=== PATIENT | female | born 1975 | race Caucasian/White ===

== ENCOUNTER 2016-10-18 05:45 | Inpatient (IN) | payer OTHER ==
[2016-10-17 10:20] VITALS: BMI 34.0
[~2016-10-18] VITALS: Ht 160 cm; Wt 84.9 kg
[2016-10-18] VITALS (24 sets, daily range): BP systolic 109–146; BP diastolic 57–86; PULSE 70–100; RESP 14–20; Ht 160 cm; Wt 84.9 kg
[2016-10-18] MEDS ORDERED: LACTATED RINGER'S 1,000 ML IV* SCH (06:00)
[2016-10-18] MEDS ORDERED: CEFAZOLIN 2 GM/50 ML (PMX) 50 ML IVPB SCH (06:00)
[2016-10-18] MEDS ORDERED: HYDR-902 PO (06:24)
[2016-10-18] MEDS ORDERED: SURGIFOAM POWDER 1 GM KIT ONE ×2 (06:47→10:40)
[2016-10-18] MEDS ORDERED: HEPARIN 1000 UNITS/ML 10 ML INJ ONE (06:47)
[2016-10-18] MEDS ORDERED: BUPIVACAINE 0.25%/EPI (SDV) 30 ML INJ ONE (06:47)
[2016-10-18] MEDS ORDERED: GELATIN SIZE 100 SPONGE ONE (06:47)
[2016-10-18] MEDS ORDERED: POLYMYXIN/BACITRACIN 1L IRRIG ONE (06:48)
[2016-10-18] MEDS ORDERED: THROMBIN 5000 UNIT VIAL ONE ×3 (06:48→10:40)
[2016-10-18] MEDS ORDERED: MIDAZOLAM 1 MG/ML 2 ML INJ ONE (06:49)
[2016-10-18] MEDS ORDERED: PROPOFOL 20 ML ONE ×3 (06:49→10:52)
[2016-10-18] MEDS ORDERED: ROCURONIUM 50 MG INJ ONE (06:49)
[2016-10-18] MEDS ORDERED: SUCCINYLCHOLINE CHLORIDE 100 MG/5 ML SYG IV ONE (06:49)
[2016-10-18] MEDS ORDERED: CEFAZOLIN 1 GM INJ ONE ×3 (06:49→10:52)
--- NOTE | 2016-10-18 07:00 | HPN ---
Date/Time of Note Date/Time of Note DATE: 10/18/16 TIME: 06:59 Interval H&P Admission Note Pt. seen H&P reviewed: No system changes ADALID MARTINES PA-C Oct 18, 2016 07:00
[2016-10-18] MEDS ORDERED: PHENYLephrine (100 MCG/ML) 5ML SYG ONE ×3 (07:16→09:07)
[2016-10-18] MEDS ORDERED: NALOXONE (0.4 MG/ML) INJ IV PRN (07:30)
[2016-10-18] MEDS ORDERED: ONDANSETRON 4 MG INJ IV PRN ×2 (07:30→09:30)
[2016-10-18] MEDS ORDERED: OXYCODONE/ACETAMINOPHEN (10/325) TAB PO PRN (07:30)
[2016-10-18] MEDS ORDERED: HYDROmorphONE 1 MG/ML SYG IV PRN (07:30)
[2016-10-18] MEDS: CEFAZOLIN 1 GM/50 ML (PMX) 50 ML IVPB SCH ×3 (07:30→22:31)
[2016-10-18] MEDS ORDERED: ACETAMINOPHEN 325 MG TAB PO PRN (07:30)
[2016-10-18] MEDS ORDERED: AL HYDROX/MG HYDROX/SIMETH 30 ML CUP PO PRN (07:30)
[2016-10-18] MEDS ORDERED: BISACODYL 10 MG SUPP PR PRN (07:30)
[2016-10-18] MEDS ORDERED: CEPASTAT LOZENGE MT PRN (07:30)
[2016-10-18] MEDS ORDERED: ZOLPIDEM 5 MG TAB PO PRN (07:30)
[2016-10-18] MEDS ORDERED: DIPHENHYDRAMINE 50 MG INJ IV PRN (07:30)
[2016-10-18] MEDS ORDERED: HYDROmorphONE 2 MG/ML SYG ONE (08:44)
[2016-10-18] MEDS: DOCUSATE SODIUM 100 MG CAP PO SCH ×2 (09:00→19:29)
[2016-10-18] MEDS ORDERED: HYDROmorphONE (0.2 MG/ML) 10ML SYG IV PRN ×2 (09:30)
[2016-10-18] MEDS ORDERED: MEPERIDINE 25 MG INJ IV PRN (09:30)
[2016-10-18] MEDS ORDERED: PROCHLORPERAZINE 10 MG INJ IV PRN (09:30)
--- NOTE | 2016-10-18 09:55 | OPPN ---
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 Post-Operative Diagnosis Same Procedure Anterior lumbar interbody fusion at L4-5, placement of intervertebral biomechanical device with integrated screws, allograft, use of C arm fluoroscopy with interpretation without radiologist present, intraoperative neuro monitoring (2 hours) Surgeon: RADHA NAM MD Anesthesiologist: DONY MERINO DO Findings See dictation Implants/Grafts [employer] synfix evolution large 13.5 mm height, 10, 40 mm width, 31 mm depth with 25 mm screws, fibergraft Estimated blood loss: 150 - 200 ml's Drains: Not applicable Specimens L4-5 disc Complications: None Complications of Procedure None Anesthesia type: general RADHA NAM MD Oct 18, 2016 09:46
[2016-10-18] MEDS ORDERED: CA CHLORIDE 10% 10 ML SYRINGE ONE (10:40)
[2016-10-18] MEDS ORDERED: DEXAMETHASONE 4 MG/ML 1 ML INJ ONE (10:50)
[2016-10-18] MEDS ORDERED: ONDANSETRON 4 MG INJ ONE (10:50)
[2016-10-18] MEDS ORDERED: FAMOTIDINE 20 MG INJ ONE (10:50)
[2016-10-18] MEDS ORDERED: ESMOLOL 10 ML ONE (10:51)
--- NOTE | 2016-10-18 11:36 | OPR ---
DATE OF OPERATION: 10/18/2016 PREOPERATIVE DIAGNOSIS: L4-L5 unstable degenerative spondylolisthesis and stenosis. POSTOPERATIVE DIAGNOSIS: L4-L5 unstable degenerative spondylolisthesis and stenosis. OPERATIONS PERFORMED: 1. Anterior lumbar interbody fusion at L4-L5. 2. Placement of intervertebral biomechanical device with integrated screws. 3. Use of allograft. 4. Use of C-arm fluoroscopy with interpretation without radiologist present. 5. Intraoperative neural monitoring (2 hours). 6. NuShield. IMPLANTS: 1. Synthes SynFix evolution, large 13.5 mm height, 10 degrees lordosis, 40 mm width, 31 mm depth wi th 25 mm screws. 2. Fibergraft. PRIMARY SURGEON: Elkin Whitley MD. COSURGEON: Edwardo Garcia MD. SECOND CHILD AND FAMILY THERAPIST: LOS Mann. NEED FOR COSURGEON: A co-surgeon was required in order to perform vascular access. This is a standa rd of care. ESTIMATED BLOOD LOSS: 150 mL. DRAINS: None. SPECIMENS: L4-5 disk was sent to Pathology. COMPLICATIONS OF PROCEDURES: None. ANESTHESIOLOGIST: Dr. Chong. TYPE OF ANESTHESIA: General. INDICATIONS FOR PROCEDURE: This is a 41-year-old female with lumbosacral radiculopathy in the setti ng of a highly unstable degenerative spondylolisthesis at L4-5. She has failed nonoperative measure s; therefore, I recommended proceeding with above-mentioned surgery. Preoperatively, we discussed t he risks, benefits and alternatives. She understood and wished to proceed. DESCRIPTION OF PROCEDURE IN DETAIL: The patient was identified in the preoperative holding area and taken to the operating room, where she was successfully placed under general anesthesia by Dr. Katalina gonsales. Neural monitoring leads were placed, and sequential compressive devices were applied. Chance catheter was introduced. Arterial line was placed. Neural monitoring leads were utilized during th is stage of the procedure for 2 hours to include SSEP, MEP and EMG. This was performed by Md7. Start time was 8:00 a.m., closure time was 10:00 a.m. The patient was placed onto the ope rating table in supine position. All bony prominences were well padded. The abdomen was then prepp ed and draped in the usual sterile fashion. Dr. Garcia performed an anterior approach, which he will dictate separately. Once he identified the anterior spine, I placed a bent spinal needle into what was felt to be the L4-5 disk, and I took AP and lateral images to confirm the correct levels. Once this was confirmed, I made an annulotomy followed by radical diskectomy. The disk was quite a dherent to the endplate, so I took some time to prepare the disk space. Ultimately, the radical dis kectomy was performed, and I was able to reduce the spine. I then placed various trials and chose the appropriate graft height. I then took the PEEK cage, within which I placed allograft, and I imp acted the intervertebral biomechanical device into the L4-5 level to complete the anterior lumbar in terbody fusion. I then placed the integrated 25 mm screws. Once this was done, all nerve signals r eturned to normal. I took AP and lateral images, and I was happy with the placement of the hardware and the alignment of the spine. The wound was then copiously irrigated. A NuShield device was germain kalpana, and Dr. Garcia proceeded to close the wound in layers. He will dictate the closure separate ly. There were no apparent complications during this stage of the procedure. Lap, sponge and instr ument counts were correct x2. The patient will be flipped over for the second stage. FINDINGS: Neural monitoring at the start of the case revealed right L5 amplitude down 40%. At the end of the case, this returned to normal. The patient had a highly unstable spondylolisthesis at L4 -5. Dictated By: ELKIN EAST/ERVIN Conf#: [id number] DID#: [id number]
--- NOTE | 2016-10-18 11:42 | OPPN ---
Date/Time of Note Date/Time of Note DATE: 10/18/16 TIME: 11:33 Operative/Procedure Note Pre-Operative Diagnosis Unstable L4-5 degenerative spondylolisthesis now status post a ALIF Post-Operative Diagnosis Same Procedure Bilateral pedicle screw placement at L4 and L5, bone marrow aspiration from L4 pedicle and vertebral body, posterior lateral fusion at L4-5, use of C arm fluoroscopy with interpretation without radiologist present, intraoperative neuro monitoring (1.5 hours) Surgeon: RADHA NAM MD Trial Examiner: ADALID MARTINES PA-C Anesthesiologist: DONY MERINO DO Findings See dictation Implants/Grafts Avella Champion 6.5 x 40 mm pedicle screw 4 Estimated blood loss: 50 - 100 ml's Drains: Not applicable Specimens: Not Applicable Complications: None Anesthesia type: general RADHA NAM MD Oct 18, 2016 11:42
[2016-10-18] MEDS: HYDROmorphONE (0.2 MG/ML) 10ML SYG IV PRN ×3 (11:51→12:22)
[2016-10-18] MEDS: HYDROmorphONE 0.2 MG/ML PCA IV SCH ×2 (12:04→19:33)
--- NOTE | 2016-10-18 12:12 | RADRPT ---
PROCEDURE: Intraoperative fluoroscopy CLINICAL INDICATION: Lumbar fusion. TECHNIQUE: Fluoroscopic utilization was provided to Dr. Whitley during L4-5 fusion. A total of 23.7 seconds and 109.3 seconds of fluoroscopic time was utilized with an estimated cumulative dose o f 70.53 mGy. Please note the dose includes all fluoroscopic visualization during the examination. COMPARISON: None. FINDINGS: 11 spot films were submitted for review. These spot images demonstrate surgical instruments at the L4-5 level with placement of interbody spacers and anterior fixation screws and plate. There is als o evidence of placement of pedicle screws at the L4-L5 level with lateral fixation bars identified. IMPRESSION: Intraoperative fluoroscopic visualization for lumbar fusion at L4-5. RPTAT: PP .Shana Lora MD, Date Time Electronically viewed and signed by .Shana Lora MD, on 10/18/2016 12:12 .H/
--- NOTE | 2016-10-18 13:29 | OPR ---
DATE OF OPERATION: 10/18/2016 PREOPERATIVE DIAGNOSIS: Unstable L4-5 degenerative spondylolisthesis now status post anterior lumba r interbody fusion. POSTOPERATIVE DIAGNOSIS: Unstable L4-5 degenerative spondylolisthesis now status post anterior lumb ar interbody fusion. OPERATIONS PERFORMED: 1. Bilateral pedicle screw placement at L4 and L5. 2. Posterolateral fusion at L4-5. 3. Bone marrow aspiration from the L4 pedicle and vertebral body. 4. Use of C-arm fluoroscopy with interpretation without radiologist present. 5. Intraoperative neuromonitoring (1.5 hours). PRIMARY SURGEON: Elkin Whitley MD GLUER AND WEDGER: LOS Mann NEED FOR PIPELINE CONSTRUCTION INSPECTOR: During this spinal surgical procedure, my medical billing assistant was used to retrac t and protect the spinal nerves and dural sac. My medical billing assistant also employed the suction catheters to evacuate blood from the surgical field to improve visualization of the neural structures. The brittney tant was medically necessary to facilitate the completion of the surgery in a safe and expeditious m juan antonio. [facility] regulations, as well as hospital bylaws, preclude the use of non-license d health care personnel, such as operating room technicians, to perform these functions. IMPLANTS: Upson Champion 6.5 x 40 mm pedicle screws x4. FINDINGS: Neuromonitoring at the start and at the end of this portion of the procedure was normal. ESTIMATED BLOOD LOSS: 50 mL for this stage. DRAINS: None. SPECIMENS: None. COMPLICATIONS OF PROCEDURE: None. ANESTHESIOLOGIST: Musa Chong DO TYPE OF ANESTHESIA: General. INDICATIONS FOR PROCEDURE: This is a 41-year-old female with an unstable degenerative spondylolisth esis at L4-5. She has failed nonoperative measures; therefore, it is recommended that she undergo t he above procedure. Preoperatively, we discussed the risks, benefits, and alternatives. She unders tood and wished to proceed. DESCRIPTION OF PROCEDURE IN DETAIL: Stage I was completed dictated separately. This is the anterio r interbody fusion at L4-5. Once this was done, the patient was repositioned on the operating table in prone position over a Pedro frame. All bony prominences were well padded. The back was then p repped and draped in the usual sterile fashion. Neuromonitoring was utilized during this stage for 1.5 hours to include SSEP, MEP, and EMG. Procedure start time for this stage was 10 a.m., closure t holli was 11:30 a.m. Using the C-arm fluoroscope, I identified the incision site. I anesthetized ski n with Marcaine and epinephrine. Incision was then made over the L4 and L5 pedicles bilaterally. N ext I passed Jamshidi needles into the L4 and L5 pedicles bilaterally under C-arm guidance. I then performed a bone marrow aspiration of the left L4 vertebral body and pedicles. Next, I placed the g uidewires followed by placement of the appropriate sized pedicle screws at L4 and L5 bilaterally. I then placed the 55 mm umair. I compressed across the screws and placed the set screws with final tig htening per manufacture's specification, and the tabs were then broken. Once the screws were in germain ce, I took final AP and lateral images. I exposed hardware in alignment with the spine. Nerve sign als remained normal throughout this portion. I stimulated each of the screws prior to placement of the umair, and there was no evidence of cortical breach. I then prepared the posterolateral gutters a nd placed allograft posterolaterally for posterolateral fusion at L4-5. I next irrigated the wound and closed the deep fascia with #1 Vicryl stitch. I closed the subcutaneous tissue with a 2-0 Vicry l stitch. A 4-0 Monocryl closure was then performed. Dermabond was then applied. The patient was then awakened from anesthesia and taken to the recovery room in stable condition. Lap, sponge, and instrument counts were correct x2. There were no apparent complications during the procedure. The patient will be admitted to the orthopedic tao for routine postoperative care to include pain c ontrol, neurovascular checks, antibiotics, and physical therapy. Dictated By: ELKIN EAST/ERIVN Conf#: [id number] DID#: [id number]
[2016-10-18] MEDS: D5W-0.45 NACL + KCL 20 MEQ 1,000 ML IV SCH ×2 (17:04→19:29)
--- NOTE | 2016-10-18 20:34 | PREOPHP ---
DATE OF ADMISSION: 10/18/2016 Thank you, Dr. Whitley, for asking us to participate in the medical management of this patient. REASON FOR CONSULTATION: History of varicose veins. HISTORY OF PRESENT ILLNESS: This 41-year-old female is now postop a lumbar surgery by Dr. Whitley. The patient injured her back at work in January 2016. She was twisting and lifting a heavy object. Since that time, the patient has had severe low back pain with radiation into the right buttocks and down the right leg. She was found to have a L4-L5 level disk herniation. She failed conservative medical management. She is now postop surgery. She is awake and alert. She has some back pain that is being managed with pain medication. Dr. Whitley discectomy and a posterior lateral fusion at the L4-5 level. The patient denies any chest pain or shortness of breath. She is having some lower abdominal pain where she has an incision. This is being managed with pain medication. PAST MEDICAL HISTORY: Remarkable for asymptomatic varicose veins both legs. PAST SURGICAL HISTORY: [place] tooth extraction. FAMILY HISTORY: Mother and father are alive without significant medical problems. SOCIAL HISTORY: The patient was a previous smoker . She has 10 pack year cigarette smoking history. ALLERGIES: SHE HAS NO KNOWN DRUG ALLERGIES. PREOPERATIVE MEDICATIONS: Included hydrocodone, acetaminophen. PHYSICAL EXAMINATION: GENERAL: At this time reveals a well-developed female in no apparent distress. VITAL SIGNS: Temperature 99, pulse of 105, respiration rate 18, blood pressure 109/57, O2 saturation 96% on room air. HEENT: Head normocephalic. EYES: Extraocular muscles intact. NOSE AND MOUTH: Normal. NECK: Supple. No neck vein distention. LUNGS: Clear to auscultation. HEART: Regular rhythm. No murmurs, gallops, or rubs. ABDOMEN: Soft. There is a bandage over an abdominal wound. EXTREMITIES: No peripheral edema. IMPRESSION: The patient is now postop a lumbar spine surgery and L4-5 fusion. It was a posterior lateral procedure. The patient has a history of a symptomatic varicose veins. She does not have any lower extremity edema at this time. Her vital signs are stable. She is being given medication for her pain. PLAN: 1. Check labs in the morning. 2. Postop lumbar spine surgery protocol. 3. I will follow the patient along with you. Dictated By: SHAMA ESCUDERO MD ND/NTS Conf#: [id number] DID#: [id number] CC: RADHA WHITLEY MD;*EndCC* MTDD
[2016-10-18] MEDS: CYCLOBENZAPRINE 10 MG TAB PO PRN (22:31)
[2016-10-19] MEDS: D5W-0.45 NACL + KCL 20 MEQ 1,000 ML IV SCH ×3 (03:01→23:01)
[2016-10-19] MEDS: CYCLOBENZAPRINE 10 MG TAB PO PRN (05:12)
[2016-10-19 05:20] LABS: BASOPHILS % 0.2 % (0.0-2.0); HEMATOCRIT 32.6 % (37.0-47.0); HEMOGLOBIN 11.3 g/dl (12.0-16.0); LYMPHOCYTES # 1.8 10^3/ul (0.8-2.9); LYMPHOCYTES % 12.4 % (15.0-51.0); MEAN CORPUSCULAR HEMOGLOBIN 31.3 pg (29.0-33.0); MEAN CORPUSCULAR HGB CONC 34.5 g/dl (32.0-37.0); MEAN CORPUSCULAR VOLUME 90.8 fl (82.0-101.0); MEAN PLATELET VOLUME 6.8 fl (7.4-10.4); MONOCYTE # 1.2 10^3/ul (0.3-0.9); MONOCYTES % 8.5 % (0.0-11.0); NEUTROPHIL # 11.5 10^3/ul (1.6-7.5); NEUTROPHILS % 78.9 % (39.0-77.0); PLATELET COUNT 271 10^3/UL (140-440); RED CELL DISTRIBUTION WIDTH 13.2 % (11.5-14.5); UNCORRECTED WBC 14.6 10^3/ul (4.8-10.8); WHITE BLOOD COUNT 14.6 10^3/ul (4.8-10.8)
[2016-10-19 05:29] LABS: POTASSIUM 3.9 mmol/L (3.5-5.1)
[2016-10-19 05:29] LABS: CONDITION 1
[2016-10-19] MEDS: HYDROmorphONE 0.2 MG/ML PCA IV SCH ×4 (05:30→22:08)
[2016-10-19 05:31] LABS: CREATININE 0.75 mg/dl (0.44-1.00)
[2016-10-19 05:32] LABS: CALCIUM 8.7 mg/dl (8.4-10.2); MAGNESIUM 1.9 mg/dl (1.7-2.5)
[2016-10-19 05:37] VITALS: BP 111/59; PULSE 91; RESP 18
[2016-10-19 08:06] VITALS: BP 111/60; RESP 19
[2016-10-19] MEDS: DOCUSATE SODIUM 100 MG CAP PO SCH ×2 (09:00→20:14)
[2016-10-19] MEDS ORDERED: INFLUENZA VIRUS VACCINE 0.5 ML SYG IM* ONE (10:00)
--- NOTE | 2016-10-19 11:16 | PN ---
Date/Time of Note Date/Time of Note DATE: 10/19/16 TIME: 11:13 Assessment/Plan Lines/Catheters IV Catheter Type (from Nrsg): Peripheral IV Chance in Place (from Nrsg): Yes Assessment/Plan Assessment/Plan adjust IRONER as ordered D/C flexeril start valium as ordered ambulate, continue PT Subjective 24 Hr Interval Summary patient c/o pain not controlled with ordered medications c/o anterior thigh discomfort denies SOB, calf pain Exam/Review of Systems Vital Signs Vitals Vital Signs Date Time Temp Pulse Resp B/P Pulse Ox O2 Delivery O2 Flow Rate FiO2 10/19/16 08:06 99.0 93 19 111/60 99 10/19/16 05:37 Room Air 10/18/16 11:54 10.0 Intake and Output 10/18/16 10/18/16 10/19/16 15:00 23:00 07:00 Intake Total 1500 ml 750 ml 2100 ml Output Total 500 ml 800 ml 2000 ml Balance 1000 ml -50 ml 100 ml Exam Free Text/Dictation NVID no calf TTP abdominal dressing C/D/I Results Result Diagram: 10/19/16 0415 10/19/16 0455 ADALID MARTINES PA-C Oct 19, 2016 11:16
[2016-10-19] MEDS ORDERED: HYDROmorphONE 1 MG/ML SYG IV PRN (11:30)
[2016-10-19] MEDS: DIAZEPAM 5 MG TAB PO PRN ×2 (11:50→18:44)
--- NOTE | 2016-10-19 13:41 | CONS ---
Date/Time of Note Date/Time of Note DATE: 10/19/16 TIME: 13:35 Assessment/Plan Assessment/Plan Chief Complaint/Hosp Course 1. she is one day post op a lumbar spine surgery posterior lateral approach . 2. she is having some back and abdominal pain . 3. continue current medication and PT . Problems: Consultation Date/Type/Reason Admit Date/Time Oct 18, 2016 at 05:45 Initial Consult Date 24 HR Interval Summary Free Text/Dictation She is 1 day post op a lumbar spine surgery , posterior lateral approach . she is having low back and abdominal pain . Exam/Review of Systems Vital Signs Vitals Vital Signs Date Time Temp Pulse Resp B/P Pulse Ox O2 Delivery O2 Flow Rate FiO2 10/19/16 08:06 99.0 93 19 111/60 99 10/19/16 05:37 Room Air 10/18/16 11:54 10.0 Intake and Output 10/18/16 10/18/16 10/19/16 15:00 23:00 07:00 Intake Total 1500 ml 750 ml 2100 ml Output Total 500 ml 800 ml 2000 ml Balance 1000 ml -50 ml 100 ml Exam Constitutional: alert, oriented, well developed Respiratory: clear to auscultation Cardiovascular: regular rate and rhythm Gastrointestinal: bowel sounds, soft, tender Musculoskeletal: nl extremities to inspection Results Result Diagram: 10/19/16 0415 10/19/16 0455 Results 24 hrs Laboratory Tests Test 10/19/16 04:15 10/19/16 04:55 Basophils # 0.0 Basophils % 0.2 Blood Morphology Comment Eosinophils # 0.0 Eosinophils % 0.0 Hematocrit 32.6 L Hemoglobin 11.3 L Lymphocytes # 1.8 Lymphocytes % 12.4 L Mean Corpuscular Hemoglobin 31.3 Mean Corpuscular Hemoglobin Concent 34.5 Mean Corpuscular Volume 90.8 Mean Platelet Volume 6.8 L Monocytes # 1.2 H Monocytes % 8.5 Neutrophils # 11.5 H Neutrophils % 78.9 H Nucleated Red Blood Cells # 0.0 Nucleated Red Blood Cells % 0.0 Platelet Count 271 Red Blood Count 3.60 L Red Cell Distribution Width 13.2 White Blood Count 14.6 H Anion Gap 15 Blood Urea Nitrogen 9 Calcium Level 8.7 Carbon Dioxide Level 25 Chloride Level 104 Creatinine 0.75 Glucose Level 123 Magnesium Level 1.9 Potassium Level 3.9 Sodium Level 140 Medications Medications Current Medications Potassium Chloride/Dextrose/ Sod Cl (D5-1/2ns + KCl 20 Meq) 1,000 ml @ 100 mls/ hr Q10H IV Last administered on 10/18/16 19:29; Admin Dose 100 MLS/HR; Start 10/18/16 at 07:01 Oxycodone/ Acetaminophen (Endocet (10/ 325)) 1 tab Q4H PRN PO PAIN LEVEL 1-5; Start 10/18/16 at 07:30 Oxycodone/ Acetaminophen (Endocet (10/ 325)) 2 tab Q4H PRN PO PAIN LEVEL 6-10; Start 10/18/16 at 07:30 Ondansetron HCl (Zofran Inj) 4 mg Q6H PRN IV NAUSEA AND/OR VOMITING; Start 07/25 at 07:30 Bisacodyl (Dulcolax Supp) 10 mg DAILY PRN [place] CONSTIPATION; Start 10/18/16 at 07 :30 Docusate Sodium (Colace) 100 mg BID PO ; Start 10/18/16 at 09:00 Al Hydrox/Mg Hydrox/Simethicone (Mag-Al Plus) 15 ml Q6H PRN PO CONSTIPATION/ DYSPEPSIA; Start 10/18/16 at 07:30 Acetaminophen (Tylenol Tab) 650 mg Q4H PRN PO JENKINS OR TEMP GREATER THAN 101.3F; Start 10/18/16 at 07:30 Phenol (Cepastat Lozenge) 1 lozenge PRN PRN MT SORE THROAT; Start 10/18/16 at 07:30 Diphenhydramine HCl (Benadryl) 25 mg Q6H PRN IV ITCHING Last administered on 12:32; Admin Dose 25 MG; Start 10/18/16 at 07:30 Naloxone HCl (Narcan) 0.2 mg Q2M PRN IV RR 8 BREATHS/MIN OR LESS; Start at 07:30 Hydromorphone HCl (Dilaudid CORRECTIONAL OFFICER LIEUTENANT) CORRECTIONAL OFFICER LIEUTENANT to be started in PACU Q4PCA IV Last administered on 10/19/16 12:15; Admin Dose 6 MG; Start 10/18/16 at 07:30 Miscellaneous Information 1. Hold CORRECTIONAL OFFICER LIEUTENANT at 1,000... CORRECTIONAL OFFICER LIEUTENANT IV ; Start 10/18/16 at 07: 30 Diazepam (Valium) 5 mg Q6H PRN PO spasm Last administered on 10/19/16t 11:50; Admin Dose 5 MG; Start 10/19/16 at 11:30 Hydromorphone HCl (Dilaudid) 0.4 mg Q1H PRN IV BREAKTHROUGH PAIN; Start at 11:30 Hydromorphone HCl (Dilaudid CORRECTIONAL OFFICER LIEUTENANT) CORRECTIONAL OFFICER LIEUTENANT to be started in PACU Q4PCA IV ; Start 08/25 at 11:30 SHAMA ESCUDERO MD Oct 19, 2016 13:40
[2016-10-19 20:00] VITALS: BP 107/56; RESP 19
[2016-10-20] MEDS: DIAZEPAM 5 MG TAB PO PRN ×2 (04:10→21:57)
[2016-10-20] MEDS: D5W-0.45 NACL + KCL 20 MEQ 1,000 ML IV SCH ×2 (04:10→19:01)
[2016-10-20] MEDS: HYDROmorphONE 0.2 MG/ML PCA IV SCH ×2 (04:16→08:34)
[2016-10-20 05:20] VITALS: BP 113/62; PULSE 113; RESP 19
[2016-10-20 05:26] LABS: BASOPHILS % 0.3 % (0.0-2.0); EOSINOPHILS % 0.3 % (0.0-7.0); HEMATOCRIT 31.3 % (37.0-47.0); HEMOGLOBIN 10.9 g/dl (12.0-16.0); LYMPHOCYTES # 1.9 10^3/ul (0.8-2.9); LYMPHOCYTES % 13.5 % (15.0-51.0); MEAN CORPUSCULAR HEMOGLOBIN 31.5 pg (29.0-33.0); MEAN CORPUSCULAR HGB CONC 34.7 g/dl (32.0-37.0); MEAN CORPUSCULAR VOLUME 90.8 fl (82.0-101.0); MEAN PLATELET VOLUME 6.5 fl (7.4-10.4); MONOCYTES % 6.8 % (0.0-11.0); NEUTROPHIL # 11.3 10^3/ul (1.6-7.5); NEUTROPHILS % 79.1 % (39.0-77.0); PLATELET COUNT 269 10^3/UL (140-440); RED BLOOD COUNT 3.45 10^6/ul (4.20-5.40); RED CELL DISTRIBUTION WIDTH 13.2 % (11.5-14.5); UNCORRECTED WBC 14.3 10^3/ul (4.8-10.8); WHITE BLOOD COUNT 14.3 10^3/ul (4.8-10.8)
[2016-10-20 05:33] LABS: CREATININE 0.76 mg/dl (0.44-1.00)
[2016-10-20 05:34] LABS: CALCIUM 8.3 mg/dl (8.4-10.2); MAGNESIUM 1.9 mg/dl (1.7-2.5)
[2016-10-20 05:42] LABS: CONDITION 1
[2016-10-20 07:45] VITALS: BP 109/55; RESP 18
[2016-10-20] MEDS: DOCUSATE SODIUM 100 MG CAP PO SCH ×2 (08:27→20:47)
[2016-10-20] MEDS: OXYCODONE/ACETAMINOPHEN (10/325) TAB PO PRN ×4 (10:10→21:58)
[2016-10-20 13:40] VITALS: BP 115/57; PULSE 101; RESP 16
--- NOTE | 2016-10-20 14:18 | CONS ---
Date/Time of Note Date/Time of Note DATE: 10/20/16 TIME: 14:14 Assessment/Plan Assessment/Plan Chief Complaint/Hosp Course 1. she is 2 days post op a lumbar spine surgery with a posterior lateral approach . 2. she is having some back and abdominal pain . She continues to have a postop ileus. She is not having any nausea or vomiting. 3. Low-grade fever without any obvious source of infection. Will check urinalysis and follow vital signs. 4. continue current medication and PT . Problems: Consultation Date/Type/Reason Admit Date/Time Oct 18, 2016 at 05:45 24 HR Interval Summary Free Text/Dictation She had a low-grade fever to 100.2 earlier. She continues to have low back pain and lower abdominal pain. She is not passing gas. She is not coughing. Her Chance catheter was removed earlier today and she has urinated twice. Exam/Review of Systems Vital Signs Vitals Vital Signs Date Time Temp Pulse Resp B/P Pulse Ox O2 Delivery O2 Flow Rate FiO2 10/20/16 13:40 99.7 101 16 115/57 96 Room Air 10/18/16 11:54 10.0 Intake and Output 10/19/16 10/19/16 10/20/16 15:00 23:00 07:00 Intake Total 3000 ml 2280 ml Output Total 2700 ml 1500 ml Balance 300 ml 780 ml Exam Constitutional: alert, oriented, well developed Psych: nl mood/affect, no complaints Respiratory: clear to auscultation, normal air movement Cardiovascular: nl pulses, regular rate and rhythm Gastrointestinal: distended, soft, tender Musculoskeletal: nl extremities to inspection Results Result Diagram: 10/20/16 0445 10/20/16 0445 Results 24 hrs Laboratory Tests Test 10/20/16 04:45 Anion Gap 14 Basophils # 0.0 Basophils % 0.3 Blood Morphology Comment Blood Urea Nitrogen 7 Calcium Level 8.3 L Carbon Dioxide Level 27 Chloride Level 101 Creatinine 0.76 Eosinophils # 0.0 Eosinophils % 0.3 Glucose Level 113 Hematocrit 31.3 L Hemoglobin 10.9 L Lymphocytes # 1.9 Lymphocytes % 13.5 L Magnesium Level 1.9 Mean Corpuscular Hemoglobin 31.5 Mean Corpuscular Hemoglobin Concent 34.7 Mean Corpuscular Volume 90.8 Mean Platelet Volume 6.5 L Monocytes # 1.0 H Monocytes % 6.8 Neutrophils # 11.3 H Neutrophils % 79.1 H Nucleated Red Blood Cells # 0.0 Nucleated Red Blood Cells % 0.0 Platelet Count 269 Potassium Level 4.0 Red Blood Count 3.45 L Red Cell Distribution Width 13.2 Sodium Level 138 White Blood Count 14.3 H Medications Medications Current Medications Potassium Chloride/Dextrose/ Sod Cl (D5-1/2ns + KCl 20 Meq) 1,000 ml @ 100 mls/ hr Q10H IV Last administered on 10/20/16 04:10; Admin Dose 100 MLS/HR; Start 10/18/16 at 07:01 Oxycodone/ Acetaminophen (Endocet (10/ 325)) 1 tab Q4H PRN PO PAIN LEVEL 1-5; Start 10/18/16 at 07:30 Oxycodone/ Acetaminophen (Endocet (10/ 325)) 2 tab Q4H PRN PO PAIN LEVEL 6-10 Last administered on 10/20/16 13:45; Admin Dose 2 TAB; Start 10/18/16 at 07:30 Ondansetron HCl (Zofran Inj) 4 mg Q6H PRN IV NAUSEA AND/OR VOMITING; Start 07/25 at 07:30 Bisacodyl (Dulcolax Supp) 10 mg DAILY PRN [place] CONSTIPATION; Start 10/18/16 at 07 :30 Docusate Sodium (Colace) 100 mg BID PO Last administered on 10/20/16 08:27; Admin Dose 100 MG; Start 10/18/16 at 09:00 Al Hydrox/Mg Hydrox/Simethicone (Mag-Al Plus) 15 ml Q6H PRN PO CONSTIPATION/ DYSPEPSIA; Start 10/18/16 at 07:30 Acetaminophen (Tylenol Tab) 650 mg Q4H PRN PO JENKINS OR TEMP GREATER THAN 101.3F; Start 10/18/16 at 07:30 Phenol (Cepastat Lozenge) 1 lozenge PRN PRN MT SORE THROAT; Start 10/18/16 at 07:30 Diphenhydramine HCl (Benadryl) 25 mg Q6H PRN IV ITCHING Last administered on 12:32; Admin Dose 25 MG; Start 10/18/16 at 07:30 Naloxone HCl (Narcan) 0.2 mg Q2M PRN IV RR 8 BREATHS/MIN OR LESS; Start at 07:30 Hydromorphone HCl (Dilaudid BLOCK HANDLER) BLOCK HANDLER to be started in PACU Q4PCA IV Last administered on 10/20/16 08:34; Admin Dose 6 MG; Start 10/18/16 at 07:30 Miscellaneous Information 1. Hold BLOCK HANDLER at 1,000... BLOCK HANDLER IV ; Start 10/18/16 at 07: 30 Diazepam (Valium) 5 mg Q6H PRN PO spasm Last administered on 10/20/16 04:10; Admin Dose 5 MG; Start 10/19/16 at 11:30 Hydromorphone HCl (Dilaudid) 0.4 mg Q1H PRN IV BREAKTHROUGH PAIN; Start at 11:30 Hydromorphone HCl (Dilaudid BLOCK HANDLER) BLOCK HANDLER to be started in PACU Q4PCA IV Last administered on 10/20/16 04:16; Admin Dose 6 MG; Start 10/19/16 at 11:30 SHAMA ESCUDERO MD Oct 20, 2016 14:18
--- NOTE | 2016-10-20 16:28 | QN ---
Documentation Comment Patient reports less pain Vitals are stable Continue with pain control Out of bed as tolerated RADHA NAM MD Oct 20, 2016 16:28
[2016-10-20 20:09] LABS: ADD UMIC YES; URINE BILIRUBIN (Dip) NEGATIVE (NEGATIVE); URINE BLOOD (Dip) 3+ (NEGATIVE); URINE COLOR LT. YELLOW (YELLOW); URINE GLUCOSE (Dip) NEGATIVE (NEGATIVE); URINE KETONES (Dip) NEGATIVE (NEGATIVE); URINE LEUKOCYTE ESTERASE (Dip) 1+ (NEGATIVE); URINE NITRITE (Dip) NEGATIVE (NEGATIVE); URINE TOTAL PROTEIN (Dip) TRACE (NEGATIVE); URINE UROBILINOGEN (Dip) 0.2 E.U./dL (0.1-1.0)
[2016-10-20 20:26] LABS: URINE RBCS >200 /HPF (0)
[2016-10-20 20:27] LABS: BACTERIA,URINE FEW; SQUAMOUS EPITHELIAL CELL,UR MODERATE
[2016-10-20 20:30] VITALS: BP 108/59; RESP 20
[2016-10-21] MEDS: OXYCODONE/ACETAMINOPHEN (10/325) TAB PO PRN ×6 (01:51→23:57)
[2016-10-21] MEDS: D5W-0.45 NACL + KCL 20 MEQ 1,000 ML IV SCH ×2 (04:55→15:01)
[2016-10-21 06:03] LABS: BASOPHILS % 0.3 % (0.0-2.0); EOSINOPHILS # 0.2 10^3/ul (0.0-0.5); EOSINOPHILS % 1.5 % (0.0-7.0); HEMATOCRIT 31.3 % (37.0-47.0); HEMOGLOBIN 10.6 g/dl (12.0-16.0); LYMPHOCYTES # 2.6 10^3/ul (0.8-2.9); LYMPHOCYTES % 23.5 % (15.0-51.0); MEAN CORPUSCULAR HEMOGLOBIN 31.2 pg (29.0-33.0); MEAN CORPUSCULAR HGB CONC 33.9 g/dl (32.0-37.0); MEAN CORPUSCULAR VOLUME 91.9 fl (82.0-101.0); MEAN PLATELET VOLUME 6.6 fl (7.4-10.4); MONOCYTE # 0.7 10^3/ul (0.3-0.9); MONOCYTES % 6.8 % (0.0-11.0); NEUTROPHIL # 7.4 10^3/ul (1.6-7.5); NEUTROPHILS % 67.9 % (39.0-77.0); PLATELET COUNT 277 10^3/UL (140-440); RED CELL DISTRIBUTION WIDTH 13.2 % (11.5-14.5); UNCORRECTED WBC 10.9 10^3/ul (4.8-10.8); WHITE BLOOD COUNT 10.9 10^3/ul (4.8-10.8)
[2016-10-21 06:21] LABS: CONDITION 1
[2016-10-21 06:29] LABS: POTASSIUM 3.5 mmol/L (3.5-5.1)
[2016-10-21 06:32] LABS: CALCIUM 8.6 mg/dl (8.4-10.2); CREATININE 0.85 mg/dl (0.44-1.00)
[2016-10-21 06:33] LABS: MAGNESIUM 2.3 mg/dl (1.7-2.5)
--- NOTE | 2016-10-21 08:14 | PN ---
Date/Time of Note Date/Time of Note DATE: 10/21/16 TIME: 08:10 Assessment/Plan Lines/Catheters IV Catheter Type (from Nrsg): Saline Lock Assessment/Plan Assessment/Plan continue with pain mgmt continue with PT d/c planning for tomorrow Subjective 24 Hr Interval Summary c/o of less pain Exam/Review of Systems Vital Signs Vitals Vital Signs Date Time Temp Pulse Resp B/P Pulse Ox O2 Delivery O2 Flow Rate FiO2 10/20/16 20:30 98.6 90 20 108/59 96 10/20/16 13:40 Room Air 10/18/16 11:54 10.0 Intake and Output 10/20/16 10/20/16 10/21/16 14:59 22:59 06:59 Intake Total 1460 ml 1400 ml Output Total 900 ml 1200 ml Balance 560 ml 200 ml Results Result Diagram: 10/21/16 0415 10/21/16 0415 RADHA NAM MD Oct 21, 2016 08:14
[2016-10-21] MEDS: DOCUSATE SODIUM 100 MG CAP PO SCH ×2 (09:10→20:11)
[2016-10-21 13:59] VITALS: BP 106/57; RESP 18
--- NOTE | 2016-10-21 13:59 | CONS ---
Date/Time of Note Date/Time of Note DATE: 10/21/16 TIME: 13:51 Assessment/Plan Assessment/Plan Chief Complaint/Hosp Course 1. she is 3 days post op a lumbar spine surgery with a posterior lateral approach . 2. she is having less pain . She is passing gas and not having any nausea or vomiting . She is taking oral fluids well . 4. continue current medication and PT . She can be discharged tomorrow if she continues to improve . Problems: Consultation Date/Type/Reason Admit Date/Time Oct 18, 2016 at 05:45 24 HR Interval Summary Free Text/Dictation She is feeling better today . She is passing flatus . Constitutional: improved Exam/Review of Systems Vital Signs Vitals Vital Signs Date Time Temp Pulse Resp B/P Pulse Ox O2 Delivery O2 Flow Rate FiO2 10/20/16 20:30 98.6 90 20 108/59 96 10/20/16 13:40 Room Air 10/18/16 11:54 10.0 Intake and Output 10/20/16 10/20/16 10/21/16 15:00 23:00 07:00 Intake Total 1460 ml 1400 ml Output Total 900 ml 1200 ml Balance 560 ml 200 ml Exam Constitutional: alert, oriented, well developed Psych: nl mood/affect, no complaints Respiratory: clear to auscultation, normal air movement Cardiovascular: regular rate and rhythm Gastrointestinal: soft, tender Musculoskeletal: nl extremities to inspection Results Result Diagram: 10/21/16 0415 10/21/16 0415 Results 24 hrs Laboratory Tests Test 10/20/16 18:00 10/21/16 04:15 Urine Bacteria FEW Urine Bilirubin NEGATIVE Urine Clarity SLIGHTLY CLOUDY Urine Color LT. YELLOW Urine Glucose NEGATIVE Urine Hemoglobin 3+ H Urine Ketones NEGATIVE Urine Leukocyte Esterase 1+ H Urine Microscopic RBC >200 Urine Microscopic WBC 5-10 Urine Nitrite NEGATIVE Urine Specific Ir[place]ide <=1.005 L Urine Squamous Epithelial Cells MODERATE Urine Total Protein TRACE Urine Urobilinogen 0.2 E.U./dL Urine pH 6.5 Anion Gap 15 Basophils # 0.0 Basophils % 0.3 Blood Morphology Comment Blood Urea Nitrogen 9 Calcium Level 8.6 Carbon Dioxide Level 29 Chloride Level 101 Creatinine 0.85 Eosinophils # 0.2 Eosinophils % 1.5 Glucose Level 94 Hematocrit 31.3 L Hemoglobin 10.6 L Lymphocytes # 2.6 Lymphocytes % 23.5 Magnesium Level 2.3 Mean Corpuscular Hemoglobin 31.2 Mean Corpuscular Hemoglobin Concent 33.9 Mean Corpuscular Volume 91.9 Mean Platelet Volume 6.6 L Monocytes # 0.7 Monocytes % 6.8 Neutrophils # 7.4 Neutrophils % 67.9 Nucleated Red Blood Cells # 0.0 Nucleated Red Blood Cells % 0.0 Platelet Count 277 Potassium Level 3.5 Red Blood Count 3.40 L Red Cell Distribution Width 13.2 Sodium Level 141 White Blood Count 10.9 #H Medications Medications Current Medications Potassium Chloride/Dextrose/ Sod Cl (D5-1/2ns + KCl 20 Meq) 1,000 ml @ 100 mls/ hr Q10H IV Last administered on 10/20/16 04:10; Admin Dose 100 MLS/HR; Start 10/18/16 at 07:01 Oxycodone/ Acetaminophen (Endocet (10/ 325)) 1 tab Q4H PRN PO PAIN LEVEL 1-5; Start 10/18/16 at 07:30 Oxycodone/ Acetaminophen (Endocet (10/ 325)) 2 tab Q4H PRN PO PAIN LEVEL 6-10 Last administered on 10/21/16 09:38; Admin Dose 2 TAB; Start 10/18/16 at 07:30 Ondansetron HCl (Zofran Inj) 4 mg Q6H PRN IV NAUSEA AND/OR VOMITING; Start 07/25 at 07:30 Bisacodyl (Dulcolax Supp) 10 mg DAILY PRN CA CONSTIPATION; Start 10/18/16 at 07 :30 Docusate Sodium (Colace) 100 mg BID PO Last administered on 10/21/16 09:10; Admin Dose 100 MG; Start 10/18/16 at 09:00 Al Hydrox/Mg Hydrox/Simethicone (Mag-Al Plus) 15 ml Q6H PRN PO CONSTIPATION/ DYSPEPSIA; Start 10/18/16 at 07:30 Acetaminophen (Tylenol Tab) 650 mg Q4H PRN PO JENKINS OR TEMP GREATER THAN 101.3F; Start 10/18/16 at 07:30 Phenol (Cepastat Lozenge) 1 lozenge PRN PRN MT SORE THROAT; Start 10/18/16 at 07:30 Diphenhydramine HCl (Benadryl) 25 mg Q6H PRN IV ITCHING Last administered on 12:32; Admin Dose 25 MG; Start 10/18/16 at 07:30 Naloxone HCl (Narcan) 0.2 mg Q2M PRN IV RR 8 BREATHS/MIN OR LESS; Start at 07:30 Hydromorphone HCl (Dilaudid [employer]) [employer] to be started in PACU Q4PCA IV Last administered on 10/20/16 08:34; Admin Dose 6 MG; Start 10/18/16 at 07:30 Miscellaneous Information 1. Hold [employer] at 1,000... [employer] IV ; Start 10/18/16 at 07: 30 Diazepam (Valium) 5 mg Q6H PRN PO spasm Last administered on 10/20/16 21:57; Admin Dose 5 MG; Start 10/19/16 at 11:30 Hydromorphone HCl (Dilaudid) 0.4 mg Q1H PRN IV BREAKTHROUGH PAIN; Start at 11:30 Hydromorphone HCl (Dilaudid [employer]) [employer] to be started in PACU Q4PCA IV Last administered on 10/20/16 04:16; Admin Dose 6 MG; Start 10/19/16 at 11:30 SHAMA ESCUDERO MD Oct 21, 2016 13:59
[2016-10-21 19:21] VITALS: BP 128/68; RESP 20
[2016-10-22] MEDS: D5W-0.45 NACL + KCL 20 MEQ 1,000 ML IV SCH (00:59)
[2016-10-22] MEDS: OXYCODONE/ACETAMINOPHEN (10/325) TAB PO PRN ×3 (03:57→12:49)
--- NOTE | 2016-10-22 05:14 | DS ---
DATE OF ADMISSION: 10/18/2016 DATE OF DISCHARGE: 10/22/2016 ADMITTING DIAGNOSIS: Anterolisthesis. FINAL DIAGNOSES: Anterolisthesis. PROCEDURE: Patient was taken to the operating room on 10/18/2016 and underwent lumbar fusion at L4- L5. HOSPITAL COURSE: The patient was admitted to the orthopedic tao after undergoing the above proced ure. Postoperatively, she did have issues with pain control, but by October 22, she was deemed st able for discharge with followup arranged with the undersigned. Dictated By: RADHA EAST/ERVIN Conf#: [id number] DID#: [id number]
[2016-10-22 08:16] VITALS: BP 126/78; RESP 20
[2016-10-22] MEDS: DOCUSATE SODIUM 100 MG CAP PO SCH (09:00)
--- NOTE | 2016-10-22 20:36 | CONS ---
Date/Time of Note Date/Time of Note DATE: 10/22/16 TIME: 20:35 Assessment/Plan Assessment/Plan Additional Assessment/Plan 1. she is 4 days post op a lumbar spine surgery with a posterior lateral approach . 2. she is having less pain . She is passing gas and not having any nausea or vomiting . She is taking oral fluids well . 4. continue current medication and PT . She can be discharged tomorrow if she continues to improve . stable for discharge, [facility] care. For Dr. Aguilar Consultation Date/Type/Reason Admit Date/Time Oct 18, 2016 at 05:45 Initial Consult Date Exam/Review of Systems Vital Signs Vitals Vital Signs Date Time Temp Pulse Resp B/P Pulse Ox O2 Delivery O2 Flow Rate FiO2 10/22/16 08:16 97.9 94 20 126/78 99 10/20/16 13:40 Room Air 10/18/16 11:54 10.0 Intake and Output 10/21/16 10/21/16 10/22/16 15:00 23:00 07:00 Intake Total 1600 ml 1700 ml Output Total 1500 ml Balance 1600 ml 200 ml Results Result Diagram: 10/21/16 0415 10/21/16 0415 VLADISLAV GUAJARDO MD Oct 22, 2016 20:36
== END 2016-10-22 13:25 | disposition home or self-care (01) | DRG 454 ==
LOC: REC 05:45 → MS1 13:47
PROVIDERS: ADMIT Specialist; ATTEND Specialist
PROC: 0SG00K1 Fusion of Lumbar Vertebral Joint with Nonautologous Tissue Substitute, Posterior Approach, Posterior Column, Open Approach (ICD-10-PCS; 2016-10-18)
PROC: 0ST20ZZ Resection of Lumbar Vertebral Disc, Open Approach (ICD-10-PCS; 2016-10-18)
PROC: 07DS3ZZ Extraction of Vertebral Bone Marrow, Percutaneous Approach (ICD-10-PCS; 2016-10-18)
PROC: 0SG00A0 Fusion of Lumbar Vertebral Joint with Interbody Fusion Device, Anterior Approach, Anterior Column, Open Approach (ICD-10-PCS; principal; 2016-10-18 07:00)
DX: M43.16 Spondylolisthesis, lumbar region (principal); K56.7 Ileus, unspecified; M48.06 Spinal stenosis, lumbar region; M51.16 Intervertebral disc disorders with radiculopathy, lumbar region
CPT/HCPCS: 72110; 80048; 81001; 81003; 83735; 85025; 86850; 86900; 86901; 86920; 87086; 90686; 97116; 97162; 97530; C1713; J0330; J0690; J1100; J1170; J1200; J1644; J2175; J2250; J2370; J2405; J3010; J3480; V2790